=== PATIENT | female | born 1965 | race Caucasian/White ===

== ENCOUNTER 2018-01-05 19:32 | Outpatient (CLI) | payer BC | END 2018-01-05 19:33 | disposition critical access hospital (66) | LOC: EMS 19:32 | PROVIDERS: ATTEND Surgery | DX: M54.2 Cervicalgia (principal); M54.9 Dorsalgia, unspecified; M25.551 Pain in right hip; V49.40XA Driver injured in collision with unspecified motor vehicles in traffic accident, initial encounter; Y92.413 State road as the place of occurrence of the external cause | CPT/HCPCS: A0425; A0429 ==

== ENCOUNTER 2018-01-05 20:03 | Emergency (ER) | payer OTHER, BC ==
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
[2018-01-05] MEDS ORDERED: MORPHINE 2 MG/ML CARPUJECT IM STA (20:31)
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
[2018-01-05] MEDS ORDERED: oxyCODONE/ACET 5/325 Prepack 4 PO STA (21:56)
[2018-01-05 22:10] VITALS: BP 114/71
== END 2018-01-05 22:10 | disposition home or self-care (01) ==
LOC: EDUNIT# → ED 20:03
DX: S16.1XXA Strain of muscle, fascia and tendon at neck level, initial encounter (principal); S70.01XA Contusion of right hip, initial encounter; V43.52XA Car driver injured in collision with other type car in traffic accident, initial encounter; Y92.488 Other paved roadways as the place of occurrence of the external cause; M50.322 Other cervical disc degeneration at C5-C6 level; E78.00 Pure hypercholesterolemia, unspecified; E03.9 Hypothyroidism, unspecified
CPT/HCPCS: 72125; 96372; 99283

== ENCOUNTER 2018-01-21 11:45 | Outpatient (CLI) | payer BC ==
--- NOTE | 2018-01-21 15:04 | XRAY Report ---
TWO VIEW THORACIC SPINE: 01/21/2018 CLINICAL INDICATION: Back pain. FINDINGS: Frontal and lateral views of the thoracic spine are compared to previous films of 10/18/2016. S-shaped scoliosis of the thoracic spine is stable. There is no evidence of interval compression fracture. No paraspinal hematoma is seen. IMPRESSION: STABLE SCOLIOSIS. NO SIGNIFICANT INTERVAL CHANGE. TD: 01/21/2018 15:02
== END 2018-01-21 11:46 | disposition home or self-care (01) ==
LOC: DI.S 11:45
PROVIDERS: ATTEND Nurse Practitioner Family
DX: M41.84 Other forms of scoliosis, thoracic region (principal)
CPT/HCPCS: 72070

== ENCOUNTER 2018-02-27 12:34 | Outpatient (CLI) | payer OTHER, BC ==
[~2018-02-27 12:34] MED LIST: GADOBUTROL 7.5 MMOL/7.5 ML VIAL ONE
--- NOTE | 2018-03-01 12:59 | MRI Report ---
MRI LUMBAR SPINE WITHOUT CONTRAST INDICATION: 53-year-old female with low back pain, right hip pain (with decreased range of motion), r ight leg pain and numbness and tingling in right leg. TECHNIQUE: 1. Sagittal STIR, T1 and T2. 2. Axial T1 and T2. COMPARISON: None. FINDINGS: There appear to be 5 olf-dij-iivpbeu, lumbar-type vertebrae. Axial images suggest a mild levoconvex c urvature in the upper lumbar spine. In the sagittal plane, there is accentuation of the normal lumbar lordosis. In addition, there appears to be minimal retrolisthesis of L4 on L5. Alignment is otherwis e unremarkable. There is definite loss of normal T2 signal from the T12-L1 disk, confirming degenerative change. In a ddition, there appears to be at least mild loss of normal T2 signal from the disks at L1-L2, L2-L3 an d L3-L4. The T11-T12, L4-L5 and L5-S1 disks appear relatively well-hydrated. The disk space heights a re maintained throughout. The marrow signal intensity is unremarkable. The conus terminates at an appropriate fashion above the L1-L2 disk level. No abnormal T2 hyperintens ity is identified in the imaged distal spinal cord. No abnormal thickening or lipomatous change of th e filum is demonstrated. Axial images: L1-L2: No focal disk herniation. No spinal canal or foraminal stenosis. L2-L3: There appears to be minimal intraforaminal disk displacement bilaterally. No foraminal stenosi s. No spinal stenosis. L3-L4: No focal disk herniation. Degenerative facet arthrosis without bony hypertrophy. Dqjp-ay-yvnjd ate redundancy of the ligamenta flava. No spinal canal or foraminal stenosis. L4-L5: Minimal disk bulge. Degenerative facet arthrosis without associated bony hypertrophy. Mild for aminal narrowing. No spinal stenosis. L5-S1: No disk herniation. Degenerative facet arthrosis without significant bony hypertrophy. No spin al canal or foraminal stenosis. Incidentally noted is a roughly 2.7 cm AP by 1.8 cm transverse by 3.5 cm craniocaudad, homogeneous, f at signal intensity mass in the medial right multifidus muscle at L4 level. The high signal completel y suppresses on the sagittal STIR sequence. Imaging findings are consistent with an intramuscular lip kavya. There is at least mild fatty atrophy in the posterior paraspinal musculature bilaterally. Region al paraspinous soft tissues are otherwise unremarkable. IMPRESSION: 1. Very early degenerative disk and facet changes are seen in the lumbar spine as described. No assoc iated spinal stenosis or significant foraminal narrowing. No evidence of neural impingement. 2. 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 Comment: No potential etiology for right lower extremity radicular symptoms has been demonstrated. Referring Provider Line: [phone] SITE ID: [id number]
== END 2018-02-27 12:35 | disposition home or self-care (01) ==
LOC: DI 12:34
PROVIDERS: ATTEND Orthopaedic Surgery
DX: M51.26 Other intervertebral disc displacement, lumbar region (principal); M47.896 Other spondylosis, lumbar region; M51.36 Other intervertebral disc degeneration, lumbar region; M47.897 Other spondylosis, lumbosacral region
CPT/HCPCS: 72148

== ENCOUNTER 2018-04-29 14:35 | Outpatient (CLI) | payer BC ==
--- NOTE | 2018-04-29 15:05 | CT Report ---
Procedure Date: 04/29/2018 Accession Number: [id number] / [id number] Procedure: CT - Head W/O CPT Code: FULL RESULT: EXAM: Head W/O DATE: 04/29/2018 2:54 PM CLINICAL HISTORY: HEADACHE COMPARISON: None. TECHNIQUE: Multiaxial CT images were obtained from the foramen magnum to the vertex. IV contrast: None. Reformats: Coronal. In accordance with CT protocol optimization, one or more of the following dose reduction techniques were utilized for this exam: automated exposure control, adjustment of mA and/or KV based on patient size, or use of iterative reconstructive technique. FINDINGS: Parenchyma: No intraparenchymal hemorrhage. No evidence of mass, midline shift, or CT findings of infarction. Arita-white differentiation is distinct. Extraaxial Spaces: Normal for age. No subdural or epidural collections identified. Ventricles: Normal in size and position. Sinuses: Imaged paranasal sinuses, orbits, and mastoids show no significant abnormality. Bones: No evidence of fracture or calvarial defect. Other: None. IMPRESSION: Normal head CT. [facility]
== END 2018-04-29 14:36 | disposition home or self-care (01) ==
LOC: DI 14:35
PROVIDERS: ATTEND Nurse Practitioner Family
DX: R51 Headache (principal)
CPT/HCPCS: 70450

== ENCOUNTER 2018-06-28 10:06 | Outpatient (CLI) | payer BC ==
--- NOTE | 2018-06-28 12:28 | XRAY Report ---
Procedure Date: 06/28/2018 Accession Number: [id number] / [id number] Procedure: XRS - Hand 3 View RT CPT Code: FULL RESULT: EXAM: RIGHT/LEFT HAND RADIOGRAPHY EXAM DATE: 06/28/2018 10:20 AM. CLINICAL HISTORY: Pain in right hand. COMPARISON: HAND 3 VIEW RT 07/31/2016. TECHNIQUE: 3 views. FINDINGS: Bones: Benign-appearing lytic osseous lesion in the proximal fourth middle phalanx is stable. There is no fracture or aggressive appearing osseous lesion. Slight interval change in the cystic-appearing lesion in the scaphoid without evidence of fracture or suggestion of necrosis. Joints: Normal. No subluxations. Soft Tissues: Normal. No soft tissue swelling. IMPRESSION: No fracture or dislocation. The lytic lesion in the scaphoid most likely represents an enchondroma versus bone cyst, benign findings. If further characterization is desirable clinically, an MR can be performed. [facility]
== END 2018-06-28 10:07 | disposition home or self-care (01) ==
LOC: DI.S 10:06
PROVIDERS: ATTEND Nurse Practitioner Family
DX: M79.641 Pain in right hand (principal)

== ENCOUNTER 2018-06-29 10:13 | Outpatient (CLI) | payer BC ==
[2018-06-29 18:56] LABS: CHOL/HDL RATIO 6.3 (<4.4); CHOLESTEROL 285 mg/dL; HDL CHOLESTEROL 45 mg/dL; LDL CHOLESTEROL,CALCULATED 216 mg/dL; LDL/HDL RATIO 4.8 (<4.4); VLDL CHOLESTEROL 24 mg/dL
[2018-06-29 19:01] LABS: THYROID STIMULATING HORMONE 34.71 uIU/mL (0.34-5.60)
[2018-06-29 19:03] LABS: FREE T4 (FREE THYROXINE) 0.59 ng/dL (0.58-1.64)
== END 2018-06-29 10:14 | disposition home or self-care (01) ==
LOC: LAB.F 10:13
PROVIDERS: ATTEND Nurse Practitioner Family
DX: E78.5 Hyperlipidemia, unspecified (principal); E03.9 Hypothyroidism, unspecified
CPT/HCPCS: 36415; 80061; 83721; 84439; 84443

== ENCOUNTER 2018-08-31 12:34 | Outpatient (CLI) | payer BC ==
--- NOTE | 2018-08-31 14:31 | XRAY Report ---
Reason: COUGH CHRONIC Procedure Date: 08/31/2018 Accession Number: [id number] / [id number] Procedure: XR - Chest 2 View X-Ray CPT Code: 00926 FULL RESULT: EXAM: CHEST RADIOGRAPHY EXAM DATE: 08/31/2018 12:52 PM. CLINICAL HISTORY: COUGH CHRONIC. COMPARISON: 10/10/2016 TECHNIQUE: 2 views. FINDINGS: Lungs/Pleura: No focal opacities evident. No pleural effusion. No pneumothorax. Normal volumes. Mediastinum: Heart and mediastinal contours are unremarkable. Other: Stable S-shaped thoracolumbar scoliosis IMPRESSION: Clear lungs. No acute findings. [facility]
== END 2018-08-31 12:35 | disposition home or self-care (01) ==
LOC: DI 12:34
PROVIDERS: ATTEND Nurse Practitioner Family
DX: R05 Cough (principal)
CPT/HCPCS: 71046

== ENCOUNTER 2019-03-07 08:00 | Outpatient (CLI) | payer BC ==
[2019-03-07 18:03] LABS: THYROID STIMULATING HORMONE 1.11 uIU/mL (0.34-5.60)
[2019-03-07 18:04] LABS: FREE T4 (FREE THYROXINE) 0.95 ng/dL (0.58-1.64)
== END 2019-03-07 23:59 | disposition home or self-care (01) ==
LOC: LAB.S 08:00
PROVIDERS: ATTEND Nurse Practitioner Family
DX: E03.9 Hypothyroidism, unspecified (principal)
CPT/HCPCS: 36415; 84439; 84443

== ENCOUNTER 2019-09-12 08:33 | Outpatient (CLI) | payer BC ==
--- NOTE | 2019-09-12 12:23 | Mammography Report ---
Reason: SCREENING MAMMO Procedure Date: 09/12/2019 Accession Number: [id number] / [id number] Procedure: MGS - Screening Mammo Dig Bilat CPT Code: FULL RESULT: EXAM: Screening Mammo Dig Bilat DATE: 09/12/2019 9:05 AM CLINICAL HISTORY: Routine screening TECHNIQUE: (B) - Bilateral CC and MLO views were obtained. COMPARISON: 04/20/2014, 01/02/2012, 12/06/2009 PARENCHYMAL PATTERN: (D) - The breasts demonstrate heterogeneously dense fibroglandular parenchyma bilaterally. FINDINGS: No significant interval change. There are no suspicious masses, calcifications, skin thickening, or areas of distortion. IMPRESSION: Negative examination. BI-RADS category 1. RECOMMENDATION: (ANNUAL) - Recommend routine annual screening mammography. BI-RADS CATEGORY: (1) - Negative. STANDARD QUALIFYING STATEMENTS: 1. This examination was not reviewed with the aid of Computer-Aided Detection (CAD). 2. A negative or benign imaging report should not preclude biopsy if clinically suspicious findings are present. 3. Dense breasts may obscure an underlying neoplasm. 4. This examination was reviewed without the aid of 3D breast imaging (tomosynthesis).
== END 2019-09-12 08:34 | disposition home or self-care (01) ==
LOC: DI.S 08:33
PROVIDERS: ATTEND Family Medicine
DX: Z12.31 Encounter for screening mammogram for malignant neoplasm of breast (principal)
CPT/HCPCS: 77067

== ENCOUNTER 2021-11-18 23:05 | Outpatient (CLI) | payer BC | END 2021-11-18 23:06 | disposition critical access hospital (66) | LOC: EMS 23:05 | DX: R55 Syncope and collapse (principal); R11.0 Nausea; R61 Generalized hyperhidrosis; R06.02 Shortness of breath | CPT/HCPCS: A0425; A0429 ==

== ENCOUNTER 2021-11-18 23:47 | Emergency (ER) | payer BC ==
[2021-11-19] MEDS ORDERED: SODIUM CHLORIDE 0.9% 1,000 ML IV STA (02:22)
[2021-11-19 03:02] LABS: BASOPHILS # (AUTO) 0.1 10^3/uL (0.0-0.1); BASOPHILS % (AUTO) 1.7 %; EOSINOPHILS # (AUTO) 0.3 10^3/uL (0.0-0.7); EOSINOPHILS % (AUTO) 4.3 %; HCT - HEMATOCRIT 38.1 % (37.0-47.0); HGB - HEMOGLOBIN 12.5 g/dL (12.0-16.0); LYMPHOCYTES # (AUTO) 1.5 10^3/uL (1.5-3.5); MEAN CORPUSCULAR HEMOGLOBIN 29.3 pg (27.0-31.0); MEAN CORPUSCULAR HGB CONC 32.8 g/dL (32.0-36.0); MEAN CORPUSCULAR VOLUME 89.4 fL (81.0-99.0); MONOCYTES # (AUTO) 0.5 10^3/uL (0.0-1.0); MONOCYTES % (AUTO) 8.3 %; NEUTROPHILS # (AUTO) 3.4 10^3/uL (1.5-6.6); NEUTROPHILS % (AUTO) 59.5 %; PLT - PLATELET COUNT 256 10^3/uL (130-450); RED BLOOD COUNT 4.26 10^6/uL (4.20-5.40); RED CELL DISTRIBUTION WIDTH 13.5 % (12.0-15.0); WHITE BLOOD COUNT 5.8 x10^3/uL (4.8-10.8)
[2021-11-19 03:07] LABS: CALCIUM 8.8 mg/dL (8.5-10.3); CREATININE 0.9 mg/dL (0.4-1.0); POTASSIUM 3.7 mmol/L (3.5-5.0)
[2021-11-19 03:30] LABS: CORONAVIRUS 229E-RESP PCR NOT DETECTED; CORONAVIRUS HKU1-RESP PCR NOT DETECTED
[2021-11-19 03:31] LABS: CORONAVIRUS NL63-RESP PCR NOT DETECTED; CORONAVIRUS OC43-RESP PCR NOT DETECTED; SARS-CoV-2 -RESP PCR PANEL NOT DETECTED
[2021-11-19 03:32] LABS: HUMAN METAPNEUMOVIRUS NOT DETECTED; INFLUENZA A- RESP PCR PANEL NOT DETECTED; RHINOVIRUS/ENTEROVIRUS DETECTED
[2021-11-19 03:33] LABS: B. PARAPERTUSSIS- RESP PCR PAN NOT DETECTED; B. PERTUSSIS- RESP PCR PANEL NOT DETECTED; C. PNEUMONIAE- RESP PCR PANEL NOT DETECTED; INFLUENZA B - RESP PCR PANEL NOT DETECTED; M. PNEUMONIAE- RESP PCR PANEL NOT DETECTED; PARAINFLUENZA VIRUS 1 NOT DETECTED; PARAINFLUENZA VIRUS 2 NOT DETECTED; PARAINFLUENZA VIRUS 3 NOT DETECTED; PARAINFLUENZA VIRUS 4 NOT DETECTED; RSV- RESP PCR PANEL NOT DETECTED
[2021-11-19 05:40] VITALS: BP 120/85
--- NOTE | 2021-11-19 07:43 | XRAY Report ---
PROCEDURE: Chest 2 View X-Ray INDICATIONS: near-syncope, rhonchi bilaterally TECHNIQUE: 2 view(s) of the chest. COMPARISON: None. FINDINGS: Surgical changes and devices: None. Lungs and pleura: No pleural effusions or pneumothorax. Lungs are clear. Mild centrilobular thicken ing. Mediastinum: Mediastinal contours are normal. Heart size is normal. Bones and chest wall: No suspicious bony abnormalities. Soft tissues appear unremarkable. IMPRESSION: Bronchitis which could be infectious or reactive. Reviewed by: Alyssa Casey MD, PhD on 11/19/2021 7:41 AM PST Approved by: Alyssa Casey MD, PhD on 11/19/2021 7:[address] [facility] Station ID: [id number]
--- NOTE | 2021-11-19 19:39 | ED Physician Documentation ---
History of Present Illness - Stated complaint Stated Complaint: SOA, NAUSEA, COUGH - Chief complaint Chief Complaint: General - History obtained from History obtained from: Patient, EMS - History of Present Illness Timing: Enter time (22:00), Today Pain level max: 0 Pain level now: 0 Improved by: rest Worsened by: standing, ambulating - Additonal information Additional information: BIBA for near-syncope. Patient was walking in her home tonight at approximately 10 PM when she became lightheaded, diaphoretic, experienced generalized weakness and sensation she was going to pass out. She had nausea but no vomiting and mild dyspnea. She was able to help herself to ground and did not lose consciousness nor sustain injury. she feels improved by the time of this HPI although still has generalized weakness and fatigue. She says there are multiple household members with URI symptoms but with negative COVID tests Review of Systems Constitutional: reports: Sweats. denies: Fever, Chills Throat: denies: Sore throat Cardiac: reports: Reviewed and negative Respiratory: reports: Dyspnea (mild). denies: Cough, Hemoptysis, Wheezing GI: reports: Nausea. denies: Abdominal Pain, Vomiting : denies: Dysuria, Frequency, Incontinent Neurologic: reports: Generalized weakness, Near syncope. denies: Focal weakness, Numbness, Syncope, Headache, Head injury, LOC PD PAST MEDICAL HISTORY - Past Medical History Past Medical History: Yes Cardiovascular: High cholesterol Respiratory: Other Endocrine/Autoimmune: HyPOthyroidism GI: None BOAT WRAPPER: None : None HEENT: None Psych: Depression Musculoskeletal: Scoliosis, Chronic back pain Derm: None - Past Surgical History Past Surgical History: Yes /BOAT WRAPPER: Hysterectomy HEENT: Myringotomy (tubes) - Present Medications Home Medications: Ambulatory Orders Medication Instructions Recorded Confirmed Levothyroxine [Synthroid] 75 mcg ORAL DAILY 05/10/15 05/10/15 oxyCODONE/ACET 5/325 [Percocet 5 1 - 2 each PO Q6H PRN #14 tablet 01/05/18 mg/325 mg] - Allergies Allergies/Adverse Reactions: Allergies Allergy/AdvReac Type Severity Reaction Status Date / Time codeine [Codeine] AdvReac Intermediate Hallucinati Verified 11/18/21 23:51 ons - Social History Does the pt smoke?: No Smoking Status: Never smoker Does the pt drink ETOH?: No Does the pt have substance abuse?: No - Immunizations Immunizations are current?: Yes - POLST Patient has POLST: No PD ED PE NORMAL - Vitals Vital signs reviewed: Yes - General General: Alert and oriented X 3, No acute distress, Well developed/nourished - HEENT HEENT: Other (tacky/pasty mucous membranes) - Neck Neck: Supple, no meningeal sign - Cardiac Cardiac: RRR, No murmur - Respiratory Respiratory: No respiratory distress, Other (scattered rhonchi) - Abdomen Abdomen: Soft, Non tender Results - Vitals Vitals: Vital Signs - 24 hr 11/18/21 11/19/21 11/19/21 23:52 01:56 02:34 Temperature 36.7 C Heart Rate 80 72 68 Respiratory 13 17 17 Rate Blood Pressure 127/86 H 119/89 H 119/101 H O2 Saturation 100 99 99 11/19/21 11/19/21 04:08 05:37 Temperature 36.6 C Heart Rate 68 71 Respiratory 16 15 Rate Blood Pressure 120/85 H O2 Saturation 99 99 Oxygen O2 Source Room air - Labs Labs: Laboratory Tests 11/19/21 11/19/21 11/19/21 02:26 02:52 02:52 WBC 5.8 RBC 4.26 Hgb 12.5 Hct 38.1 MCV 89.4 MCH 29.3 MCHC 32.8 RDW 13.5 Plt Count 256 MPV 10.0 Neut # (Auto) 3.4 Lymph # (Auto) 1.5 [place] # (Auto) 0.5 Eos # (Auto) 0.3 Baso # (Auto) 0.1 Absolute Nucleated RBC 0.00 Nucleated RBC % 0.0 Sodium 136 Potassium 3.7 Chloride 104 Carbon Dioxide 23 Anion Gap 9.0 BUN 15 Creatinine 0.9 Estimated GFR (MDRD) 65 L Glucose 113 H Calcium 8.8 Nasal Adenovirus (PCR) NOT DETECTED Nasal B. parapertussis DNA (PCR) NOT DETECTED Nasal Coronavir 229E PCR NOT DETECTED Nasal Coronavir HKU1 PCR NOT DETECTED Nasal Coronavir NL63 PCR NOT DETECTED Nasal Coronavir OC43 PCR NOT DETECTED Nasal Enterovir/Rhinovir PCR DETECTED A Nasal Influenza B PCR NOT DETECTED Nasal Influenza A PCR NOT DETECTED Nasal Parainfluen 1 PCR NOT DETECTED Nasal Parainfluen 2 PCR NOT DETECTED Nasal Parainfluen 3 PCR NOT DETECTED Nasal Parainfluen 4 PCR NOT DETECTED Nasal RSV (PCR) NOT DETECTED Nasal B.pertussis DNA PCR NOT DETECTED Nasal C.pneumoniae (PCR) NOT DETECTED Estiven Human Metapneumo PCR NOT DETECTED Nasal M.pneumoniae (PCR) NOT DETECTED Nasal SARS-CoV-2 (PCR) NOT DETECTED - Rads (name of study) chest xray Radiology: Prelim report reviewed, See rad report PD MEDICAL DECISION MAKING - ED course Complexity details: reviewed results, re-evaluated patient, considered differential, d/w patient ED course: describes near-syncopal event at home. vital signs stable during ED stay, afebrile, and unremarkable blood tests (CBC, BMP). Respiratory PCR panel only positive for entero/rhinovirus, and CXR s/o bronchitis. She is given 1 liter IV NS and tolerates PO, on reevaluation has MMM and reports feeling improved. Results reviewed, return precautions discussed Departure - Departure Disposition: 01 Home, Self Care Clinical Impression: Near syncope, Bronchitis Condition: Good Instructions: ED Upper Resp Infec No Abx Tx, ED Near Syncope Unkn Follow-Up: Oswaldo Tobar MD [Primary Care Provider] - Comments: Your blood tests are unremarkable. Your chest xray does not have evidence of pneumonia (it does have findings consistent with bronchitis, which is a "chest cold" and does not need antibiotics). Your COVID and flu swabs are negative, although the same swab was positive for rhinovirus (which is considered a "common cold" virus). You will need rest and to keep up with oral fluids; you should feel much better by the end of the week Discharge Date/Time: 11/19/21 06:16
== END 2021-11-19 06:16 | disposition home or self-care (01) ==
LOC: EDUNIT# → SUPCPDRO 23:47 → ED 23:47
DX: J40 Bronchitis, not specified as acute or chronic (principal); Z20.822 Contact with and (suspected) exposure to COVID-19
CPT/HCPCS: 0202U; 36415; 71046; 80048; 85025; 99282; 99284

== ENCOUNTER 2021-12-20 10:04 | Outpatient (CLI) | payer BC ==
--- NOTE | 2021-12-20 13:13 | XRAY Report ---
PROCEDURE: Wrist 4 View LT INDICATIONS: XRAY TECHNIQUE: 4 views of the wrist were acquired. COMPARISON: None FINDINGS: Bones: No fractures or dislocations. No suspicious bony lesions. Diffuse osteopenia. Moderate degen erative changes of the left first carpometacarpal joint. Minimal degenerative changes at the triscaph e joint. Scaphoid view: Scaphoid appears intact. Scapholunate interval is maintained. Soft tissues: No suspicious soft tissue calcifications. IMPRESSION: Left wrist without acute fracture or malalignment. Diffuse osteopenia. Moderate first carpometacarpal joint degenerative change. Reviewed by: Viktor Dial MD on 12/20/2021 1:12 PM PST Approved by: Viktor Dial MD on 12/20/2021 1:12 PM PST Station ID: [id number]
--- NOTE | 2021-12-20 13:16 | XRAY Report ---
PROCEDURE: Hand 3 View LT INDICATIONS: XRAY TECHNIQUE: 3 views of the hand(s) acquired. COMPARISON: None FINDINGS: Bones: No acute fractures or dislocations. No suspicious bony lesions. Diffuse osteopenia. Moderat e degenerative changes of the first carpometacarpal joint, first interphalangeal joint, second and th ird distal interphalangeal joint. Mild degenerative changes of the second and third proximal interpha langeal joints and triscaphe joint. Soft tissues: No suspicious soft tissue calcifications. IMPRESSION: Left hand without acute fracture or malalignment. Polyarticular osteoarthritic changes involving the first carpometacarpal joint, first interphalangeal joint, second and third distal interphalangeal joints, triscaphe joint, and second and third proxima l interphalangeal joints. Reviewed by: Viktor Dial MD on 12/20/2021 1:15 PM PST Approved by: Viktor Dial MD on 12/20/2021 1:15 PM PST Station ID: [id number]
== END 2021-12-20 10:05 | disposition home or self-care (01) ==
LOC: DI.S 10:04
PROVIDERS: ATTEND Nurse Practitioner Family
DX: M19.042 Primary osteoarthritis, left hand (principal); M19.032 Primary osteoarthritis, left wrist

== ENCOUNTER 2022-01-30 10:49 | Outpatient (CLI) | payer BC ==
--- NOTE | 2022-01-30 11:13 | DEXA Report ---
PROCEDURE: Dexa Spine and/or Hip INDICATIONS: OSTEOPENIA TECHNIQUE: Dual energy x-ray absorptiometry (DXA) was performed on a Vimodi System. Regions measur ed are the AP Spine, femoral neck, and if needed forearm. COMPARISON: None. FINDINGS: Lumbar Spine: Bone Mineral Density 0.706 g/cm/cm,T score -4.0, osteoporosis Left Femoral Neck: Bone Mineral Density 0.655 g/cm/cm, T score -2.8, osteoporosis (T score greater or equal to -1.0: NORMAL) (T score from -1.1 to -2.4: OSTEOPENIA) (T score less than or equal to -2.5 to: OSTEOPOROSIS) Impression: Osteoporosis. Patients with diagnosis of osteoporosis or osteopenia should have regular bone mineral density assess ment. For those eligible for Medicare, routine testing is allowed once every 2 years. Testing frequ ency can be increased for patients who have rapidly progressing disease or for those who are receivin g medical therapy to restore bone mass. Reviewed by: Ian Zendejas MD on 01/30/2022 11:11 AM PDT Approved by: Ian Zendejas MD on 01/30/2022 11:11 AM PDT Station ID: [id number]
== END 2022-01-30 10:50 | disposition home or self-care (01) ==
LOC: DI 10:49
PROVIDERS: ATTEND Nurse Practitioner Family
DX: M81.0 Age-related osteoporosis without current pathological fracture (principal)

== ENCOUNTER 2023-10-30 09:39 | Outpatient (CLI) | payer MEDICARE ==
[2023-10-30 14:46] LABS: BASOPHILS # (AUTO) 0.1 10^3/uL (0.0-0.1); BASOPHILS % (AUTO) 1.4 %; EOSINOPHILS # (AUTO) 0.5 10^3/uL (0.0-0.7); EOSINOPHILS % (AUTO) 6.7 %; HCT - HEMATOCRIT 39.5 % (37.0-47.0); HGB - HEMOGLOBIN 12.4 g/dL (12.0-16.0); LYMPHOCYTES # (AUTO) 2.4 10^3/uL (1.5-3.5); LYMPHOCYTES % (AUTO) 31.3 %; MEAN CORPUSCULAR HEMOGLOBIN 29.7 pg (27.0-31.0); MEAN CORPUSCULAR HGB CONC 31.4 g/dL (32.0-36.0); MEAN CORPUSCULAR VOLUME 94.7 fL (81.0-99.0); MEAN PLATELET VOLUME 11.1 fL (7.9-10.8); MONOCYTES # (AUTO) 0.6 10^3/uL (0.0-1.0); MONOCYTES % (AUTO) 7.6 %; NEUTROPHILS # (AUTO) 4.1 10^3/uL (1.5-6.6); NEUTROPHILS % (AUTO) 52.7 %; PLT - PLATELET COUNT 348 10^3/uL (130-450); RED BLOOD COUNT 4.17 10^6/uL (4.20-5.40); RED CELL DISTRIBUTION WIDTH 13.3 % (12.0-15.0); WHITE BLOOD COUNT 7.7 x10^3/uL (4.8-10.8)
[2023-10-30 14:48] LABS: ALBUMIN 3.8 g/dL (3.2-5.5); ALBUMIN/GLOBULIN RATIO 1.1 (1.0-2.2); ALKALINE PHOSPHATASE 98 IU/L (42-121); ALT ALANINE AMINOTRANSFERASE 10 IU/L (10-60); AST ASPARTATE AMINOTRANSFERASE 13 IU/L (10-42); BILIRUBIN,TOTAL 0.3 mg/dL (0.2-1.0); BUN - BLOOD UREA NITROGEN 12 mg/dL (6-20); CALCIUM 9.7 mg/dL (8.5-10.3); CARBON DIOXIDE - CO2 28 mmol/L (21-32); CHLORIDE 105 mmol/L (101-111); CHOL/HDL RATIO 5.8 (<4.4); CHOLESTEROL 243 mg/dL; CREATININE 0.9 mg/dL (0.6-1.3); GFR - MDRD 64 (>89); GLUCOSE 89 mg/dL (74-104); HDL CHOLESTEROL 42 mg/dL; LDL CHOLESTEROL,CALCULATED 178 mg/dL; LDL/HDL RATIO 4.2 (<4.4); SODIUM 137 mmol/L (135-145); TOTAL PROTEIN 7.3 g/dL (6.4-8.9); TRIGLYCERIDES 115 mg/dL (48-352); VLDL CHOLESTEROL 23 mg/dL
[2023-10-30 14:54] LABS: THYROID STIMULATING HORMONE 0.85 uIU/mL (0.34-5.60)
== END 2023-10-30 09:40 | disposition home or self-care (01) ==
LOC: LAB.S 09:39
PROVIDERS: ATTEND Nurse Practitioner Family
DX: R53.83 Other fatigue (principal); E78.5 Hyperlipidemia, unspecified; E03.9 Hypothyroidism, unspecified
CPT/HCPCS: 36415; 80053; 80061; 82607; 82746; 83721; 84439; 84443; 85025

== ENCOUNTER 2023-11-02 08:00 | Outpatient (CLI) | payer MEDICARE | END 2023-11-02 08:01 | disposition home or self-care (01) | LOC: LAB.S 08:00 | PROVIDERS: ATTEND Emergency Medicine | DX: J02.9 Acute pharyngitis, unspecified (principal) ==

== ENCOUNTER 2023-12-10 13:18 | Outpatient (CLI) | payer MEDICARE | END 2023-12-10 13:19 | disposition home or self-care (01) | LOC: RT 13:18 | PROVIDERS: ATTEND Nurse Practitioner Family | DX: R06.09 Other forms of dyspnea (principal) | CPT/HCPCS: 94010; 94729 ==

== ENCOUNTER 2024-02-10 14:54 | Outpatient (CLI) | payer MEDICARE ==
--- NOTE | 2024-02-11 09:57 | Mammography Report ---
BILATERAL DIGITAL SCREENING MAMMOGRAM 3D/2D: 02/10/2024 CLINICAL: Routine screening. Family history of breast cancer. Comparison is made to exams dated: 09/12/2019 mammogram and 04/20/2014 mammogram - [facility]. Both breasts are heterogeneously dense, which may obscure small masses (category c / 51-75% glandular tissue). There are benign masses in both breasts. No significant masses, calcifications, or other findings are seen in either breast. There has been no significant interval change. IMPRESSION: BENIGN There is no mammographic evidence of malignancy. A 1 year screening mammogram is recommended. Based on the Tyrer Cuzick model (a risk assessment model) the patient's lifetime risk is 13.7% and he r 10 year risk is 5.6%. According to the ACR, ACS, and NCCN guidelines, an annual breast MRI exam norma ng with mammogram is recommended if the patient's lifetime risk is 20% or greater. This exam was interpreted at Station ID: [id number]. NOTE: For mammograms, a report in lay terms will be sent to the patient. Approximately 15% of breast malignancies will not be visualized mammographically. In the management of a palpable breast mass, a negative mammogram must not discourage biopsy of a clinically suspicious lesion. Electronically Signed By: Yung berry/vitaliy:02/11/2024 08:00:25 letter sent: No_Letter ACR BI-RADS Category 2: Benign Finding(s) 3342F PARENCHYMAL PATTERN: (D) - The breast(s) demonstrate(s) heterogeneously dense fibroglandular ervin triana. BI-RADS CATEGORY: (2) - 2 RECOMMENDATION: (ANNUAL) - Recommend routine annual screening mammography. [id number] 1 year screening LATERALITY: (B)
== END 2024-02-10 14:55 | disposition home or self-care (01) ==
LOC: DI.S 14:54
PROVIDERS: ATTEND Nurse Practitioner Family
DX: Z12.31 Encounter for screening mammogram for malignant neoplasm of breast (principal); R92.333 Mammographic heterogeneous density, bilateral breasts; Z80.3 Family history of malignant neoplasm of breast

== ENCOUNTER 2024-03-24 10:47 | Outpatient (CLI) | payer MEDICARE ==
--- NOTE | 2024-03-24 14:11 | DEXA Report ---
PROCEDURE: Dexa Spine and/or Hip INDICATIONS: OSTEOPOROSIS TECHNIQUE: Dual energy x-ray absorptiometry (DXA) was performed on a [employer] System. Regions measur ed are the AP Spine, femoral neck, and if needed forearm. COMPARISON: DEXA 01/30/2022 FINDINGS: Lumbar Spine: Bone Mineral Density: 0.677 g/cm/cm,T score: -4.2. Since the most recent prior study, there has been a statistically significant decrease in bone mineral density by 4.1 percent. Left Femoral Neck: Bone Mineral Density: 0.628 g/cm/cm, T score: -3.0. Left Hip: Bone Mineral Density: 0.604 g/cm/cm,T score: -3.2. Since the most recent prior study, there has been a statistically significant decrease in bone mineral density by 6.2 percent. (T score greater or equal to -1.0: NORMAL) (T score from -1.1 to -2.4: OSTEOPENIA) (T score less than or equal to -2.5 to: OSTEOPOROSIS) Impression: By WHO criteria, this patient has osteoporosis. Interval statistical decrease in bone mineral density of the lumbar spine. Interval statistical decre ase in bone mineral density of the hip. Patients with diagnosis of osteoporosis or osteopenia should have regular bone mineral density assess ment. For those eligible for Medicare, routine testing is allowed once every 2 years. Testing frequ ency can be increased for patients who have rapidly progressing disease or for those who are receivin g medical therapy to restore bone mass. Reviewed by: Tomasz Silveira MD on 03/24/2024 2:10 PM PDT Approved by: Tomasz Silveira MD on 03/24/2024 2:10 PM PDT Station ID: [id number]
== END 2024-03-24 10:48 | disposition home or self-care (01) ==
LOC: DI 10:47
PROVIDERS: ATTEND Nurse Practitioner Family
DX: M81.0 Age-related osteoporosis without current pathological fracture (principal)

== ENCOUNTER 2024-03-24 10:50 | Outpatient (CLI) | payer MEDICARE ==
--- NOTE | 2024-03-24 16:43 | CT Report ---
PROCEDURE: Lung Cancer Screen INDICATIONS: SMOKER TECHNIQUE: A CT scan of the chest was performed. Intravenous contrast media was not administered. Images were re corded and evaluated at appropriate window settings. Reformats: axial MIP of the chest, coronal and s agittal. For radiation dose reduction, the following was used: automated exposure control, adjustment of mA and/or kV according to patient size. COMPARISON: None. FINDINGS: Image quality: Excellent. Prior cancer history: Unknown Lungs and pleura: Nodules are as follows: 1. Part solid 4 mm nodule anterior right upper lobe, 4/35. 2. Predominantly calcified ovoid nodule anterolateral right middle lobe measuring 7 mm, 4/64. 3. Groundglass juxta fissural nodule left midlung, left upper lobe measuring 4 mm, best seen on sagit erlin imaging series 8 image 117. Findings are on a background of mild emphysema. A few scattered punctate and tiny round calcification s are present bilaterally. Glass opacities or consolidations. No pleural effusions or pneumothorax. C entral and peripheral airways are normal caliber without bronchial wall thickening or bronchiectasis. Mediastinum: Heart size is normal. Mild coronary artery calcification. No pericardial effusion. No la rge vessel abnormality. No mediastinal adenopathy by size criteria. No anterior or posterior mediast inal mass. Normal esophagus without hiatal hernia Chest wall and lower neck: The thyroid gland is diminutive and not well seen. No suspicious chest wal l mass. No axillary or supraclavicular adenopathy by size. Bones: Thoracic spine scoliosis without AP subluxation or suspicious bone lesion. Upper Abdomen: There are a few hypodensities in the liver ranging in size from 1.4 to 4.3 cm each are incompletely evaluated due to technique. The right kidney may be asymmetrically diminutive. Visible portions of the upper abdomen are otherwise normal. IMPRESSION: Lung RAD: 2 - Benign. Recommendation: Continue annual screening in 12 Months with LDCT Non-Lung Significant Findings: Mass - Liver. Consider dedicated CT of the abdomen/pelvis with contras t. Reviewed by: Vianney Awad MD on 03/24/2024 4:42 PM PDT Approved by: Vianney Awad MD on 03/24/2024 4:42 PM PDT Station ID: [id number]
== END 2024-03-24 10:51 | disposition home or self-care (01) ==
LOC: DI 10:50
PROVIDERS: ATTEND Nurse Practitioner Family
DX: Z12.2 Encounter for screening for malignant neoplasm of respiratory organs (principal); F17.200 Nicotine dependence, unspecified, uncomplicated; R93.2 Abnormal findings on diagnostic imaging of liver and biliary tract; R91.8 Other nonspecific abnormal finding of lung field; J43.9 Emphysema, unspecified; M81.0 Age-related osteoporosis without current pathological fracture

== ENCOUNTER 2024-05-12 07:00 | Outpatient (CLI) | payer MEDICARE ==
[2024-05-12 19:38] LABS: BILIRUBIN,URINE NEGATIVE (NEGATIVE); GLUCOSE, URINE (UA) NEGATIVE (NEGATIVE); KETONES,URINE (UA) NEGATIVE (NEGATIVE); LEUKOCYTE ESTERASE, URINE NEGATIVE (NEGATIVE); NITRITE,URINE NEGATIVE (NEGATIVE); OCCULT BLOOD,URINE NEGATIVE (NEGATIVE); PH,URINE 5.5 PH (5.0-7.5); PROTEIN,URINE NEGATIVE (NEGATIVE); UROBILINOGEN,URINE 0.2 (NORMAL) E.U./dL (NORMAL)
[2024-05-12 19:48] LABS: CLARITY,URINE CLOUDY (CLEAR); RBC,URINE 0-5 /HPF (0-5); SQUAMOUS EPITHELIAL CELL,UR RARE Squamous (<= Few)
[2024-05-12 19:49] LABS: BACTERIA,URINE Many /HPF (None Seen); STARCH,URINE PRESENT
== END 2024-05-12 23:59 | disposition home or self-care (01) ==
LOC: LAB.S 07:00
PROVIDERS: ATTEND Emergency Medicine
DX: R30.0 Dysuria (principal)
CPT/HCPCS: 81001; 87086; 87181

== ENCOUNTER 2024-06-03 14:51 | Outpatient (CLI) | payer MEDICARE ==
[2024-06-03] MEDS ORDERED: DIATRIZOATE MEGLU/DIATRIZO SOD 30 ML BOTTLE PO ONE (14:57)
[2024-06-03] MEDS ORDERED: iohexoL-300 100 ML VIAL ONE (14:57)
[2024-06-03 15:56] LABS: CALCIUM 9.6 mg/dL (8.5-10.3); CREATININE 0.9 mg/dL (0.6-1.3); POTASSIUM 3.9 mmol/L (3.5-4.5)
[2024-06-03] MEDS: iohexoL-300 100 ML VIAL IVP ONE (16:10)
[2024-06-03] MEDS: DIATRIZOATE MEGLU/DIATRIZO SOD 30 ML BOTTLE PO ONE (16:10)
--- NOTE | 2024-06-03 17:42 | CT Report ---
PROCEDURE: Abdomen/Pelvis W INDICATIONS: LIVER CYST CONTRAST: 100ml omni 300 TECHNIQUE: After the administration of intravenous contrast, a CT scan of the abdomen and pelvis was performed. Images were recorded and evaluated at appropriate window settings. Reformats: coronal and sagittal. F or radiation dose reduction, the following was used: automated exposure control, adjustment of mA and /or kV according to patient size. COMPARISON: 03/24/2024 FINDINGS: Image quality: Diagnostic Lower chest: Basal atelectasis. Mildly patulous distal esophagus with fluid, probably from reflux or dysmotility Liver: Fluid attenuation low density lesions are compatible with cysts. However, subcentimeter lesion s are too small to arise, these are usually also cysts versus hemangiomas. Gallbladder and biliary system: Unremarkable, nondilated Pancreas: No ductal dilation Spleen: Nonenlarged Adrenals: No discrete mass or nodule Kidneys: No solid mass. No hydronephrosis Vessels and lymph nodes: The main portal vein is patent. Abdominal aortic ectasia 2.5 cm. There are enlarged upper abdominal lymph nodes, for example portacaval node measures 1.8 cm in short axis. A gastrohepatic node measures 1.6 cm in short axis. Bowel and peritoneum: No small bowel obstruction. No pathologic ascites. Body wall: Unremarkable. Small fat-containing umbilical hernia Pelvis: Uterus is absent. Bladder is unremarkable. Bones: Degenerative changes, no acute or suspicious osseous finding. IMPRESSION: Hypoattenuating liver lesions represent benign cysts. Subcentimeter lesions are too small to characterize, usually also cysts or hemangiomas, attention on follow-up. Abnormal enlarged upper abdominal lymph nodes are seen described above. Further imaging could be purs ued with abdominal MRI, PET CT, or endoscopic ultrasound Other findings as above. Reviewed by: Yung Castellanos MD on 06/03/2024 5:41 PM PDT Approved by: Yung Castellanos MD on 06/03/2024 5:41 PM PDT Station ID: [id number]
== END 2024-06-03 14:52 | disposition home or self-care (01) ==
LOC: DI 14:51
PROVIDERS: ATTEND Nurse Practitioner Family
DX: K76.89 Other specified diseases of liver (principal); R59.0 Localized enlarged lymph nodes
CPT/HCPCS: 36415; 74177; 80048; Q9963; Q9967

== ENCOUNTER 2024-06-07 08:00 | Outpatient (CLI) | payer MEDICARE | END 2024-06-07 23:59 | disposition home or self-care (01) | LOC: LAB.S 08:00 | PROVIDERS: ATTEND Registered Nurse | DX: U07.1 COVID-19 (principal) ==

== ENCOUNTER 2024-07-29 09:09 | Outpatient (CLI) | payer MEDICARE ==
[2024-07-29 09:52] LABS: ALBUMIN 3.8 g/dL (3.2-5.5); ALBUMIN/GLOBULIN RATIO 1.1 (1.0-2.2); BILIRUBIN,TOTAL 0.3 mg/dL (0.2-1.0); CALCIUM 9.5 mg/dL (8.5-10.3); CREATININE 0.9 mg/dL (0.6-1.3); POTASSIUM 4.1 mmol/L (3.5-4.5); TOTAL PROTEIN 7.2 g/dL (6.4-8.9)
== END 2024-07-29 09:10 | disposition home or self-care (01) ==
LOC: LAB 09:09
PROVIDERS: ATTEND Nurse Practitioner Family
DX: R59.0 Localized enlarged lymph nodes (principal)
CPT/HCPCS: 36415; 80053

== ENCOUNTER 2024-07-29 09:17 | Outpatient (CLI) | payer MEDICARE ==
[~2024-07-29 09:17] MED LIST changes: -GADOBUTROL 7.5 MMOL/7.5 ML VIAL ONE; +GADOTERATE MEGLUMINE 7.5 MMOL/15 ML VIAL ONE
[2024-07-29] MEDS: GADOTERATE MEGLUMINE 7.5 MMOL/15 ML VIAL IVP ONE (10:57)
--- NOTE | 2024-07-29 15:04 | MRI Report ---
PROCEDURE: Abdomen W/WO INDICATIONS: LYMPHADENOPATHY CONTRAST: CLARISCAN 12.5 ML TECHNIQUE: Coronal ultra fast SE, axial 2D spoiled GE in- and cgt-lc-ainyt; axial breath-hold T2 fast SE. Dynam ic axial ultra fast GE during the administration of contrast; post-contrast coronal ultra fast GE or 2D spoiled GE with fat saturation from the hepatic dome to the iliac crests. Optional diffusion weig hted imaging and ADC may be performed. COMPARISON: CT 06/03/2024 FINDINGS: Image quality: Excellent. Lung bases and heart: Unremarkable. Liver: Multiple hepatic cysts are present. No suspicious mass. Gallbladder and biliary tree: Gallbladder sludge. No wall thickening. No biliary dilation. Spleen: No splenomegaly. Pancreas: No pancreatic ductal dilation. Adrenals: No adrenal nodule. Kidneys and ureters: No hydronephrosis. No renal cystic lesion which requires follow up. No solid mas s. Bowel and peritoneum: No bowel distension. No pathologic free fluid. Lymph nodes: Multiple enlarged periportal cysts. This includes the 2.8 x 1.6 cm portacaval node (seri es 8, image 56) and on the 4.7 x 1.4 cm periportal nodule (series 8, image 53). Nonenlarged aortocava l, pericaval and periaortic nodules are also present. Vessels: No infrarenal aortic aneurysm. Bones: No aggressive osseous abnormality. 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 Other: No significant ventral hernia. IMPRESSION: Multiple enlarged periportal lymph nodes. Findings could be reactive or indicate malignancy such as l ymphoma. Consider evaluation with endoscopic ultrasound. Multiple hepatic cysts, which are benign. Reviewed by: Jose Alberto Olivia MD on 07/29/2024 3:03 PM PDT Approved by: Jose Alberto Olivia MD on 07/29/2024 3:03 PM PDT Station ID: [id number]
== END 2024-07-29 09:18 | disposition home or self-care (01) ==
LOC: DI 09:17
PROVIDERS: ATTEND Nurse Practitioner Family
DX: R59.0 Localized enlarged lymph nodes (principal); K76.89 Other specified diseases of liver
CPT/HCPCS: 36415; 80053